=== PATIENT | male | born 1995 | race Two or more races ===

== ENCOUNTER 2018-09-15 20:23 | Emergency (ER) | payer SELFPAY ==
[~2018-09-15] VITALS: Ht 182.9 cm; Wt 131.0 kg
[2018-09-15 20:23] VITALS: BP 120/69
--- NOTE | 2018-09-15 21:02 | PHYS DOC ---
Adult General Chief Complaint Chief Complaint: LACERATION/AVULSION HPI HPI Patient is a 23-year-old male who presents with complaint of injury to his left elbow after he slipped and fell while in the shower. Patient states that there was a metal plate on the wall that scraped his forearm. He rates pain at a 7 out of 10. He states that he is not up-to-date on his tetanus. Patient states pain is worsened with movement of his elbow. Review of Systems Review of Systems Constitutional: Denies fever or chills [] Respiratory: Denies cough or shortness of breath [] Cardiovascular: No additional information not addressed in HPI [] Musculoskeletal: Positive left elbow pain [] Integument: Positive abrasion left elbow[] Current Medications Current Medications Current Medications Medications (Trade) Dose Ordered Sig/Fernandez Start Time Stop Time Status Last Admin Dose Admin Diphtheria/ Tetanus/Acell Pertussis (Boostrix) 0.5 ml ONCE ONCE 09/15/18 21:00 09/15/18 21:01 UNV Allergies Allergies Allergies Coded Allergies Type Severity Reaction Last Updated Verified No Known Drug Allergies 09/15/18 No Physical Exam Physical Exam Constitutional: Well developed, well nourished, no acute distress, non-toxic appearance. [] Cardiovascular: Regular rate and rhythm[] Lungs & Thorax: Bilateral breath sounds clear to auscultation [] Skin: Warm, dry, no erythema, no rash. There is a small skin tear/abrasion noted to the left proximal forearm extending into dermis. [] Extremities: There is some tenderness to palpation around medial and lateral aspects to the elbow with essentially normal range of motion. No deformity noted. [] EKG EKG [] Radiology/Procedures Radiology/Procedures [] Impressions: X-ray of the left elbow demonstrates no acute bony abnormalities. Course & Med Decision Making Course & Med Decision Making Pertinent Labs and Imaging studies reviewed. (See chart for details) [] Dragon Disclaimer Dragon Disclaimer This electronic medical record was generated, in whole or in part, using a voice recognition dictation system. Departure Departure: Impression: Primary Impression: Left elbow contusion Additional Impression: Abrasion of left forearm Disposition: HOME, SELF-CARE Condition: STABLE Referrals: PCP,NO (PCP) Patient Instructions: Abrasions, Elbow Contusion Scripts Diclofenac Sodium (DICLOFENAC SODIUM) 50 Mg Tablet.dr 1 TAB PO BID PRN for PAIN, #20 TAB Prov: LEESA ZAFAR Jr. DO 09/15/18 Problem Qualifiers Primary Impression: Left elbow contusion Encounter type: initial encounter Qualified Codes: S50.02XA - Contusion of left elbow, initial encounter Additional Impression: Abrasion of left forearm Encounter type: initial encounter Qualified Codes: S50.812A - Abrasion of left forearm, initial encounter LEESA ZAFAR Jr. DO Sep 15, 2018 21:02
[2018-09-15] MEDS ORDERED: DIPHTH,PERTUSS(ACELL),TET TOX 0.5 ML DISP.SYRIN. VAX IM ONE (21:15)
[2018-09-15] MEDS ORDERED: DICL50TA4 PO (22:52)
--- NOTE | 2018-09-15 23:37 | RAD ---
Indication: Elbow pain. Fall. Large laceration TECHNIQUE: 3 views of the left elbow COMPARISON: None Findings/ impression: No acute fracture or dislocation. No joint effusion. Electronically signed by: Navi Marcos DO (09/15/2018 11:35 PM) [facility]
== END 2018-09-15 23:00 | disposition home or self-care (01) ==
LOC: ER 20:23
DX: S50.02XA Contusion of left elbow, initial encounter (principal); S50.812A Abrasion of left forearm, initial encounter; W18.2XXA Fall in (into) shower or empty bathtub, initial encounter; Y93.89 Activity, other specified; Y92.89 Other specified places as the place of occurrence of the external cause; Y99.8 Other external cause status
CPT/HCPCS: 73080; 90471; 90715; 99283-25

== ENCOUNTER 2020-04-23 23:45 | Emergency (ER) | payer SELFPAY ==
[~2020-04-23] VITALS: Ht 182.9 cm; Wt 104.9 kg
[~2020-04-23 23:45] MED LIST: DICL50TA4 PO
--- NOTE | 2020-04-23 23:47 | PHYS DOC ---
Past History Past Medical History: No Pertinent History, Constipation Past Surgical History: No Surgical History Smoking: Cigarettes Alcohol Use: Occasionally Drug Use: Amphetamine, Marijuana, Methamphetamine General Adult HPI: HPI: '".. I ve been hurting bad all day.. I am the Josefa munguia at [employer] I just got off.. hurting really bad.. I came straight from work...".. " I think I am dying of cancer.. I hurt so bad..." Patient is a 25 year old male josefa munguia from [employer] who presents with above hx and complaints severe abdomen pain. Pain is generalized but has some localization to right lower quadrant area. Patient denies any trauma. Patient denies any specific ill contacts. Patient did eat [employer] meal lunch. Co mplaints of passing a lot of bowel gas.. Patient does not remember his last stool. Does have a history of constipation issues. No recent travel outside the [employer] area. No recent history of fever or chills. Review of Systems: Review of Systems: Constitutional: Denies fever or chills Eyes: Denies change in visual acuity HENT: Denies nasal congestion or sore throat Respiratory: Denies cough or shortness of breath Cardiovascular: Denies chest pain or edema GI: Complains of severe abdominal pain, nausea,. Denies vomiting, bloody stools or diarrhea . History of constipation : Denies dysuria Musculoskeletal: Denies back pain or joint pain Integument: Denies rash Neurologic: Denies headache, focal weakness or sensory changes Endocrine: Denies polyuria or polydipsia Lymphatic: Denies swollen glands Psychiatric: Denies depression or anxiety Heart Score: Risk Factors: Risk Factors: DM, Current or recent (<one month) smoker, HTN, HLP, family history of CAD, obesity. Risk Scores: Score 0 - 3: 2.5% MACE over next 6 weeks - Discharge Home Score 4 - 6: 20.3% MACE over next 6 weeks - Admit for Clinical Observation Score 7 - 10: 72.7% MACE over next 6 weeks - Early Invasive Strategies Family History: Family History: Noncontributory Current Medications: Current Meds: See nursing for home meds Allergies: Allergies: Allergies Coded Allergies Type Severity Reaction Last Updated Verified No Known Drug Allergies 09/15/18 No Physical Exam: PE: Constitutional: In acute distress, non-toxic appearance. [] HENT: Normocephalic, atraumatic, bilateral external ears normal, oropharynx moist, no oral exudates, nose normal. [] Eyes: PERRLA, EOMI, conjunctiva normal, no discharge. [] Neck: Normal range of motion, no tenderness, supple, no stridor. [] Cardiovascular:Heart rate regular rhythm, no murmur [] Lungs & Thorax: Bilateral breath sounds equal apex on auscultation with scattered wheezes Abdomen: Bowel sounds normal, soft, generalized tenderness, some rebound to the right lower quadrant, some mild right epigastric tenderness, distended, tympanic, no masses, no pulsatile masses. [] Circumcised male. Testicles descended. Obese. Skin: Warm, dry, no erythema, no rash. [] Back: No tenderness, no CVA tenderness. [] Extremities: No tenderness, no cyanosis, no clubbing, ROM intact, no edema. Very mild psoas on right Neurologic: Alert and oriented X 3, normal motor function, normal sensory function, no focal deficits noted. [] Psychologic: Affect anxious, judgement normal, mood normal. [] EKG: EKG: My interpretation of EKG shows a sinus rhythm at 66 bpm. Nonspecific T wave strain pattern. No findings of acute STEMI or contralateral changes. [] Radiology/Procedures: Radiology/Procedures: [[address] [address] IMAGING REPORT Signed PATIENT: DIANNE CRUZ GACCOUNT: [id number] : 1995 LOCATION: ER AGE: 25 SEX: M EXAM STATUS: REG ER ORD. PHYSICIAN: CLAUDETTE OZUNA MD REASON: pain PROCEDURE: ACUTE ABDOMEN SERIES PA chest and AP upright supine abdomen x-rays HISTORY: Pain. FINDINGS: Heart size normal. Mediastinum unremarkable. No pneumothorax, pulmonary opacities or pleural effusions. No pneumoperitoneum. No bowel obstruction with no abnormal dilation or air-fluid levels evident. Bones unremarkable. IMPRESSION: No acute process in the chest. No bowel obstruction evident. Electronically signed by: Jeff Ervin MD (04/24/2020 3:38 AM) [facility] [place] DICTATED AND SIGNED BY: JEFF ERVIN MD DATE: 04/24/20 0338 CC: CLAUDETTE OZUNA MD; PCP,NO ~ ][address] [address] IMAGING REPORT Signed PATIENT: DIANNE CRUZ GACCOUNT: [id number] : 1995 LOCATION: ER AGE: 25 SEX: M EXAM STATUS: REG ER ORD. PHYSICIAN: CLAUDETTE OZUNA MD REASON: pain PROCEDURE: CT ABD PELV W/ORAL&IV CONTRAST CT abdomen and pelvis with contrast PQRS statement: CT scans at this facility use dose reduction including either automated exposure control, iterative reconstructions, and /or weight based radiation dosing via mA and kV modification when appropriate to reduce radiation dose to as low as reasonably achievable. HISTORY: Abdominal pain. Contrast: 75 mL Omnipaque 300 intravenous contrast. Abdomen findings: Liver, gallbladder, small accessory spleen, spleen, pancreas, adrenal glands and kidneys are unremarkable. No obstruction or inflammation GI tract. The appendix is negative. No abdominal fluid or adenopathy. Pelvis findings: Bladder, prostate, rectum and bones are unremarkable. IMPRESSION: No acute process. Appendix is negative. Electronically signed by: Jeff Erivn MD (04/24/2020 2:38 AM) [facility] DI[facility] AND SIGNED BY: JEFF ERVIN MD DATE: 04/24/20 0238 CC: CLAUDETTE OZUNA MD; PCP,NO ~ Course & Med Decision Making: Course & Med Decision Making Pertinent Labs and Imaging studies reviewed. (See chart for details) Patient stay on a clear fluid diet only for the next 48 hours. No solids or milk products. Must remain on a clear fluid diet allow bowel rest. Push fluids. Take Tylenol and ibuprofen for pain. Must have reexamined no improvement. Encourage pt. to stop smoking Marijuana, Meth and Tobacco. Impression: 1. Abdomen pain 2. Constipation 3. Tobacco, marijuana and methamphetamine use 4. History of anxiety [] Dragon Disclaimer: Dragvargas Disclaimer: This electronic medical record was generated, in whole or in part, using a voice recognition dictation system. Departure Departure: Disposition: 01 HOME/RESIDENCE PRIOR TO ADM Condition: STABLE Referrals: PCP,NO (PCP) [place] Disclaimer This chart was dictated in whole or in part using Voice Recognition software in a busy, high-work load, and often noisy Emergency Department environment. It may contain unintended and wholly unrecognized errors or omissions. Dragon Disclaimer This chart was dictated in whole or in part using Voice Recognition software in a busy, high-work load, and often noisy Emergency Department environment. It may contain unintended and wholly unrecognized errors or omissions. CLAUDETTE OZUNA MD Apr 23, 2020 23:47
[2020-04-24] MEDS ORDERED: ONDANSETRON PF 4 MG/2 ML VIAL. IVP ONE (00:30)
[2020-04-24] MEDS ORDERED: FAMOTIDINE 20 MG/2 ML VIAL IVP ONE (00:30)
[2020-04-24] MEDS ORDERED: KETOROLAC 30 MG/ML VIAL. IVP ONE (00:30)
[2020-04-24] MEDS ORDERED: IV RINGERS SOLUTION,LACTATED 1,000 ML IV SCH (00:30)
[2020-04-24] MEDS ORDERED: IOHEXOL 300 MG/ML 75 ML VIAL. IV ONE (01:00)
[2020-04-24] MEDS ORDERED: CONTRAST GIVEN. MC PRN (01:00)
[2020-04-24] MEDS ORDERED: IOHEXOL 240 MG/ML 50ML VIAL. PO ONE (01:00)
[2020-04-24 01:51] LABS: CALCIUM 8.5 mg/dL (8.5-10.1); CREATININE 1.1 mg/dL (0.7-1.3); GFR 80.3; POTASSIUM 3.8 mmol/L (3.5-5.1)
[2020-04-24 01:55] LABS: BASO % 1 % (0-3); EOS # 0.2 x10^3/uL (0.0-0.7); EOS % 4 % (0-3); HEMATOCRIT 42.9 % (39.0-53.0); HEMOGLOBIN 14.6 g/dL (13.0-17.5); LYMPH # 1.1 x10^3/uL (1.0-4.8); LYMPH % 23 % (24-48); MEAN CORPUSCULAR HEMOGLOBIN 33 pg (25-35); MEAN CORPUSCULAR HGB CONC 34 g/dL (31-37); MEAN CORPUSCULAR VOLUME 97 fL (79-100); MONO # 0.5 x10^3/uL (0.0-1.1); MONO % 9 % (0-9); NEUT # 3.1 x10^3uL (1.8-7.7); NEUT % 64 % (31-73); PLATELET COUNT 241 x10^3/uL (140-400); RED BLOOD COUNT 4.45 x10^6/uL (4.30-5.70); RED CELL DISTRIBUTION WIDTH 12.2 % (11.5-14.5); WHITE BLOOD COUNT 4.9 x10^3/uL (4.0-11.0)
[2020-04-24 01:56] LABS: BARBITURATES NEG (NEG); BENZODIAZEPINES NEG (NEG); CANNABINOIDS POS (NEG); COCAINE NEG (NEG); METHADONE NEG (NEG); OPIATES NEG (NEG); PHENCYCLIDINE NEG (NEG)
[2020-04-24 01:56] LABS: ALBUMIN 3.4 g/dL (3.4-5.0); DIRECT BILIRUBIN 0.2 mg/dL (0.0-0.2); TOTAL BILIRUBIN 0.4 mg/dL (0.2-1.0); TOTAL PROTEIN 6.9 g/dL (6.4-8.2)
[2020-04-24 02:05] LABS: AMPHETAMINE/METHAMPHETAMINE POS (NEG)
--- NOTE | 2020-04-24 02:41 | RAD ---
CT abdomen and pelvis with contrast PQRS statement: CT scans at this facility use dose reduction including either automated exposure control, iterative reconstructions, and /or weight based radiation dosing via mA and kV modification when appropriate to reduce radiation dose to as low as reasonably achievable. HISTORY: Abdominal pain. Contrast: 75 mL Omnipaque 300 intravenous contrast. Abdomen findings: Liver, gallbladder, small accessory spleen, spleen, pancreas, adrenal glands and kidneys are unremarkable. No obstruction or inflammation GI tract. The appendix is negative. No abdominal fluid or adenopathy. Pelvis findings: Bladder, prostate, rectum and bones are unremarkable. IMPRESSION: No acute process. Appendix is negative. Electronically signed by: Leander Ervin MD (04/24/2020 2:38 AM) [facility]
[2020-04-24 03:17] LABS: BILIRUBIN,URINE NEG (NEG); CLARITY,URINE CLEAR; COLOR,URINE AMBER; GLUCOSE,URINE NEG (NEG)
[2020-04-24 03:18] LABS: BACTERIA,URINE FEW /HPF (0-FEW); NITRITE,URINE NEG (NEG); RBC,URINE 0 /HPF (0-2); SQUAMOUS EPITHELIAL CELL,UR FEW /LPF; WBC,URINE 0 /HPF (0-4)
--- NOTE | 2020-04-24 03:41 | RAD ---
PA chest and AP upright supine abdomen x-rays HISTORY: Pain. FINDINGS: Heart size normal. Mediastinum unremarkable. No pneumothorax, pulmonary opacities or pleural effusions. No pneumoperitoneum. No bowel obstruction with no abnormal dilation or air-fluid levels evident. Bones unremarkable. IMPRESSION: No acute process in the chest. No bowel obstruction evident. Electronically signed by: Leander Ervin MD (04/24/2020 3:38 AM) [facility]
[2020-04-24] MEDS ORDERED: MAGNESIUM HYDROXIDE 2,400 MG/30 ML ORAL.SUSP. PO ONE (04:15)
[2020-04-24 04:24] VITALS: BP 108/60
--- NOTE | 2020-04-24 06:43 | EKG ---
[address] [address] Test Date: 2020-04-24 Test Time: 01:39:54 Pat Name: DIANNE CRUZ Department: Room: Gender: M [employer]: SHARMILA : 1995 Requested By: CLAUDETTE OZUNA Order Number: [id number] Reading MD: Measurements Intervals [place] Rate: 66 P: 63 CO: 176 QRS: 80 QRSD: 76 T: 49 QT: 400 QTc: 421 Interpretive Statements SINUS RHYTHM ST & T ABNORMALITY, CONSIDER RECENT INFERIOR MYOCARDIAL OR PERICARDIAL DAMAGE ABNORMAL ECG RI6.02 No previous ECG available for comparison
== END 2020-04-24 04:37 | disposition home or self-care (01) ==
LOC: ER 23:45
DX: K59.00 Constipation, unspecified (principal); R10.84 Generalized abdominal pain; R10.13 Epigastric pain; F41.9 Anxiety disorder, unspecified; F12.10 Cannabis abuse, uncomplicated; F15.10 Other stimulant abuse, uncomplicated; F17.210 Nicotine dependence, cigarettes, uncomplicated
CPT/HCPCS: 36415; 74022; 74177; 80048; 80076; 80307; 81001; 82550; 83690; 84484; 85025; 85610; 85730; 93005; 96361; 96374; 96375; 99285; J1885; J2405; J3490; J7120; Q9966